=== PATIENT | male | born 1965 | race Caucasian/White ===

== ENCOUNTER → 2024-01-21 | Outpatient (CLI) | payer BC ==
--- NOTE | 2024-01-21 15:48 | MR ---
EXAMINATION TYPE: MR shoulder RT wo con DATE OF EXAM: 01/21/2024 COMPARISON: None HISTORY: Right shoulder pain for 10 months, no known injury. TECHNIQUE: Multiplanar, multisequence imaging of the right shoulder is performed without contrast. FINDINGS: There is no bone contusion or fracture. There is mild degenerative change of the AC joint but no sign ificant shoulder impingement. There is no significant degenerative change of the glenohumeral joint. There is a full-thickness tear supraspinatus tendon approximately 13 to 14 mm proximal to its inserti on on the greater tuberosity. There is no retraction of the musculotendinous junction. Infraspinatus and subscapularis tendons are intact There is moderate fluid in the biceps tendon which is situated within the bicipital groove. The bicep s anchor is intact but there is a complex tear of the superior cartilaginous labrum consistent with a SLAP injury. There is no subacromial or subdeltoid bursitis. IMPRESSION: 1. Rotator cuff tear involving the supraspinatus tendon as described above. 2. Complex flap injury of the superior cartilaginous labrum with an intact biceps anchor.
== END | disposition home or self-care (01) ==
LOC: RADMRIMAIN 08:34
PROVIDERS: ATTEND Orthopaedic Surgery
DX: S46.011A Strain of muscle(s) and tendon(s) of the rotator cuff of right shoulder, initial encounter (principal); M75.41 Impingement syndrome of right shoulder